=== PATIENT | male | born 1980 | race Hispanic/Latino ===

== ENCOUNTER 2017-03-19 04:00 | Inpatient (IN) | payer MEDICAID ==
--- NOTE | 2017-03-19 21:18 | PCM.SURG1 ---
Surgeon's Initial Post Op Note - Surgeon's Notes Surgeon: Dr. Hutchinson Accounting Analyst: Dr. Dunn Type of Anesthesia: General Endo, Local Pre-Operative Diagnosis: acute appendicitis Operative Findings: inflammed appendix Post-Operative Diagnosis: same Operation Performed: laparoscopic appendectomy Specimen/Specimens Removed: appendix Estimated Blood Loss: EBL {In ML}: 10 Blood Products Given: N/A Drains Used: No Drains Post-Op Condition: Good Date of Surgery/Procedure: 03/19/17 Time of Surgery/Procedure: 13:00
[2017-03-19] MEDS ORDERED: Oxycodone/Acetaminophen 5/325 mg Tab PO PRN (21:50)
[2017-03-19] MEDS ORDERED: Morphine 4 MG/ML VIAL IVP PRN (21:51)
[2017-03-19] MEDS: Piperacillin/Tazobact 3.375 GM in Sodium Chloride 100 ML IVPB SCH (22:00)
[2017-03-19] MEDS: Oxycodone/Acetaminophen 5/325 mg Tab PO PRN (22:19)
[2017-03-19] MEDS: Lactated Ringer's 1,000 ML IV SCH (22:23)
[2017-03-20 00:01] LABS: BASO # 0.1 K/uL (0.0-0.2); BASO % 0.8 % (0.0-2.0); EOS # 0.2 K/uL (0.0-0.7); EOS % 1.4 % (0.0-4.0); HEMATOCRIT 42.7 % (35.0-51.0); LYMPH # 2.6 K/uL (1.0-4.3); LYMPH % 17.1 % (20.0-40.0); MEAN CELL VOLUME 84.9 fL (80.0-94.0); MEAN PLATELET VOLUME 9.1 fL (7.2-11.7); MONO # 0.7 K/uL (0.0-0.8); MONO % 4.4 % (0.0-10.0); RED CELL DISTRIBUTION WIDTH 13.3 % (11.5-14.5); WHITE BLOOD COUNT 15.1 K/uL (4.8-10.8)
[2017-03-20 00:14] LABS: ALB/GLOB RATIO 1.5 (1.0-2.1); ALCOHOL SERUM < 20 mg/dl (0-10); ALKALINE PHOSPHATASE 80 U/L (38-126); ALT/SGPT 27 U/L (21-72); AMYLASE 65 U/L (30-110); AST/SGOT 24 U/L (17-59); BILIRUBIN,TOTAL 0.6 mg/dL (0.2-1.3); BLOOD UREA NITROGEN 12 mg/dL (9-20); CALCIUM 9.1 mg/dl (8.6-10.4); CARBON DIOXIDE 25 mmol/L (22-30); CHLORIDE 100 mmol/L (98-107); GFR AFRICAN-AMERICAN > 60; GLUCOSE,RANDOM 130 mg/dL (75-110); POTASSIUM 3.9 mmol/L (3.6-5.2); SODIUM 138 mmol/L (132-148); TOTAL PROTEIN 8.5 g/dL (6.3-8.3)
[2017-03-20] MEDS: Oxycodone/Acetaminophen 5/325 mg Tab PO PRN ×2 (04:21→08:48)
[2017-03-20] MEDS: Piperacillin/Tazobact 3.375 GM in Sodium Chloride 100 ML IVPB SCH ×4 (04:22→22:16)
[2017-03-20 05:55] LABS: URINE COLOR YELLOW (YELLOW); URINE GLUCOSE (UA) Normal (Normal)
[2017-03-20 05:56] LABS: URINE BILIRUBIN NEGATIVE (NEGATIVE); URINE BLOOD NEGATIVE (NEGATIVE); URINE KETONE NEGATIVE (NEGATIVE); URINE LEUKOCYTE ESTERASE Negative Leu/uL (Negative); URINE PROTEIN 1+ mg/dL (NEGATIVE); URINE UROBILINOGEN Normal mg/dL (0.2-1.0)
[2017-03-20 05:57] LABS: RBC URINE 4 /hpf (0-3); URINE BACTERIA RARE (<OCC); WBC URINE 1 /hpf (0-5)
[2017-03-20 06:48] LABS: CHLORIDE 100 mmol/L (98-107); SODIUM 135 mmol/L (132-148)
[2017-03-20 06:50] LABS: GFR AFRICAN-AMERICAN > 60
[2017-03-20 06:51] LABS: BLOOD UREA NITROGEN 17 mg/dL (9-20); CALCIUM 8.1 mg/dl (8.6-10.4); CARBON DIOXIDE 27 mmol/L (22-30); GLUCOSE,RANDOM 123 mg/dL (75-110)
[2017-03-20 06:57] LABS: HEMATOCRIT 36.5 % (35.0-51.0); LYMPH # 1.7 K/uL (1.0-4.3); LYMPH % 8.9 % (20.0-40.0); MEAN CELL VOLUME 85.6 fL (80.0-94.0); MEAN CORPUSCULAR HEMOGLOBIN 27.9 pg (27.0-31.0); MEAN CORPUSCULAR HGB CONC 32.6 g/dL (33.0-37.0); MEAN PLATELET VOLUME 9.6 fL (7.2-11.7); MONO # 0.8 K/uL (0.0-0.8); MONO % 4.4 % (0.0-10.0); PLATELET COUNT 303 K/uL (130-400); RED CELL DISTRIBUTION WIDTH 13.3 % (11.5-14.5); WHITE BLOOD COUNT 18.7 K/uL (4.8-10.8)
[2017-03-20] MEDS: Lactated Ringer's 1,000 ML IV SCH (08:49)
--- NOTE | 2017-03-20 09:14 | CT ---
CT abdomen and pelvis with IV contrast Indication: Abdominal pain, mid upper abdomen Technique: Contiguous axial images of the abdomen and pelvis. Coronal and Sagittal reformats generated and reviewed. Contrast: 100 mL Visipaque 320 IV. Oral contrast was not administered. This CT exam was performed using 1 or more of the falling dose reduction techniques: Automated exposure control, adjustment of the MAA and/or kV according to patient size, and/or use of iterative reconstruction technique. Radiation dose: Total exam DLP = 412.14 MGy-cm. Comparison: None available Findings: Minimal basilar atelectasis. There is no visible pleural effusion or pneumothorax. Nodular hyperplasia, left adrenal gland. The liver, spleen, kidneys, pancreas, right adrenal gland, and gallbladder appear unremarkable. The stomach is nondistended. The bowel loops appear within normal limits of caliber without evidence of intestinal obstruction. There is no definite free air. Dilated appendix measuring approximately 1 cm with evidence of mild periappendiceal fat stranding. Appendicolith noted. Findings consistent with acute appendicitis. Correlate clinically. Under distended urinary bladder. Urachal remnant. No acute osseous abnormality is detected. Impression: Dilated appendix measuring approximately 1 cm with evidence of mild periappendiceal fat stranding. Appendicolith noted. Findings consistent with acute appendicitis. Correlate clinically. 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 Nodular hyperplasia, left adrenal gland. Preliminary impression was provided by virtual radiologic.
[2017-03-20 09:53] LABS: NEUTROPHIL 87 % (50-75); TOTAL CELLS COUNTED 100
[2017-03-20 09:54] LABS: LARGE PLATELETS PRESENT
--- NOTE | 2017-03-20 09:57 | CP.PCM.PN ---
<Arabella Gibbons DO - Last Filed: 03/20/17 11:36> Subjective - Date & Time of Evaluation Date of Evaluation: 03/20/17 Time of Evaluation: 09:53 - Subjective Subjective: PGY1 Progress note for Dr. Hutchinson: Patient seen and examined. Patient complaining of right lower quadrant pain, especially with movement in bed. Patient tolerating diet and denies nausea or vomiting. Patient denies fevers and chills. Patient denies flatus or BM. Patient denies dysuria. Objective - Vital Signs/Intake and Output Vital Signs (last 24 hours): Temp Pulse Resp BP Pulse Ox 98.3 F 72 20 99/55 L 96 03/20/17 08:25 03/20/17 08:25 03/20/17 08:25 03/20/17 08:25 03/20/17 08:25 Intake and Output: 03/20/17 03/20/17 06:59 18:59 Intake Total 1125 Balance 1125 - Medications Medications: Current Medications Docusate Sodium (Colace) 100 mg PO BID [facility] Lactated Ringer's (Lactated Ringer's) 1,000 mls @ 125 mls/hr IV .Q8H [facility] Last Admin: 03/20/17 08:49 Dose: 125 mls/hr Piperacillin Sod/Tazobactam (Sod 3.375 gm/ Sodium Chloride) 100 mls @ 200 mls/ hr IVPB Q6H [facility] Last Admin: 03/20/17 09:13 Dose: 200 mls/hr Ondansetron HCl (Zofran Inj) 4 mg IVP Q4 PRN PRN Reason: Nausea/Vomiting Oxycodone/Acetaminophen (Percocet 5/325 Mg Tab) 2 tab PO Q4H PRN PRN Reason: Pain, severe (8-10) Stop: 03/22/17 21:51 Last Admin: 03/20/17 08:48 Dose: 2 tab Oxycodone/Acetaminophen (Percocet 5/325 Mg Tab) 1 tab PO Q4H PRN PRN Reason: Pain, moderate (4-7) Stop: 03/22/17 21:51 Pantoprazole Sodium (Protonix Inj) 40 mg IVP DAILY [facility] Last Admin: 03/20/17 09:12 Dose: 40 mg - Labs Labs: 03/20/17 06:16 03/20/17 06:16 - Constitutional Appears: No Acute Distress - Head Exam Head Exam: ATRAUMATIC, NORMOCEPHALIC - Eye Exam Eye Exam: EOMI - Respiratory Exam Respiratory Exam: NORMAL BREATHING PATTERN. absent: Respiratory Distress - GI/Abdominal Exam GI & Abdominal Exam: Distended, Tenderness (RLQ). absent: Guarding Additional comments: dressings on incisions clean, dry, intact - Neurological Exam Neurological Exam: Alert, Awake - Psychiatric Exam Psychiatric exam: Normal Affect - Skin Skin Exam: Warm Assessment and Plan - Assessment and Plan (Free Text) Assessment: 37 male s/p laparoscopic appendectomy, POD #1 - continue zosyn 3.375g q6 - holding percocet due to distention for possible ileus, starting toradol - adding colace - encourage ambulation, incentive spirometer - will continue to monitor - further recs per Dr. Hutchinson <Helio Hutchinson - Last Filed: 03/22/17 22:44> Objective - Vital Signs/Intake and Output Vital Signs (last 24 hours): Temp Pulse Resp BP Pulse Ox 98.3 F 77 20 115/74 96 03/22/17 16:45 03/22/17 16:45 03/22/17 16:45 03/22/17 16:45 03/22/17 16:45 - Medications Medications: Current Medications Albuterol/Ipratropium (Duoneb 3 Mg/0.5 Mg (3 Ml) Ud) 3 ml INH RQ6 [facility] Last Admin: 03/22/17 19:54 Dose: 3 ml Albuterol/Ipratropium (Duoneb 3 Mg/0.5 Mg (3 Ml) Ud) 3 ml INH RQ2 PRN PRN Reason: Wheezing Docusate Sodium (Colace) 100 mg PO BID [facility] Last Admin: 03/22/17 18:00 Dose: 100 mg Heparin Sodium (Porcine) (Heparin) 5,000 units SC Q8 [facility] Last Admin: 03/22/17 21:50 Dose: 5,000 units Piperacillin Sod/Tazobactam (Sod 3.375 gm/ Sodium Chloride) 100 mls @ 200 mls/ hr IVPB Q6H [facility] Last Admin: 03/22/17 21:49 Dose: 200 mls/hr Lactated Ringer's (Lactated Ringer's) 1,000 mls @ 50 mls/hr IV .Q20H [facility] Last Admin: 03/21/17 10:06 Dose: 50 mls/hr Metoclopramide HCl (Reglan) 5 mg IVP Q8H [facility] Stop: 03/23/17 03:53 Last Admin: 03/22/17 20:41 Dose: 5 mg Ondansetron HCl (Zofran Inj) 4 mg IVP Q4 PRN PRN Reason: Nausea/Vomiting Pantoprazole Sodium (Protonix Inj) 40 mg IVP DAILY [facility] Last Admin: 03/22/17 10:23 Dose: 40 mg - Labs Labs: 03/22/17 11:25 03/21/17 06:13 Attending/Attestation - Attestation I have personally seen and examined this patient.: Yes I have fully participated in the care of the patient.: Yes I have reviewed all pertinent clinical information, including history, physical exam and plan: Yes Notes (Text): 03/22/17 22:44 Pt was seen and examined at bedside on 03/20/17 Agree with above note and assessment
[2017-03-21] MEDS ORDERED: Albuterol-Ipratrop 3 mg / 0.5 (3 ml) UD INH STA (00:17)
[2017-03-21] MEDS: Piperacillin/Tazobact 3.375 GM in Sodium Chloride 100 ML IVPB SCH ×4 (04:23→21:13)
[2017-03-21 06:25] LABS: BASO % 0.3 % (0.0-2.0); EOS # 0.1 K/uL (0.0-0.7); EOS % 0.4 % (0.0-4.0); LYMPH # 3.1 K/uL (1.0-4.3); LYMPH % 18.1 % (20.0-40.0); MEAN CELL VOLUME 86.7 fL (80.0-94.0); MEAN CORPUSCULAR HEMOGLOBIN 28.3 pg (27.0-31.0); MEAN CORPUSCULAR HGB CONC 32.7 g/dL (33.0-37.0); MEAN PLATELET VOLUME 9.4 fL (7.2-11.7); MONO # 0.8 K/uL (0.0-0.8); MONO % 4.5 % (0.0-10.0); RED CELL DISTRIBUTION WIDTH 13.3 % (11.5-14.5); WHITE BLOOD COUNT 17.4 K/uL (4.8-10.8)
[2017-03-21 06:31] LABS: CHLORIDE 102 mmol/L (98-107); POTASSIUM 3.6 mmol/L (3.6-5.2); SODIUM 139 mmol/L (132-148)
[2017-03-21 06:33] LABS: BILIRUBIN,TOTAL 0.8 mg/dL (0.2-1.3); GFR AFRICAN-AMERICAN > 60
[2017-03-21 06:34] LABS: ALKALINE PHOSPHATASE 48 U/L (38-126); ALT/SGPT 21 U/L (21-72); AST/SGOT 30 U/L (17-59); BLOOD UREA NITROGEN 17 mg/dL (9-20); CARBON DIOXIDE 29 mmol/L (22-30); GLUCOSE,RANDOM 87 mg/dL (75-110)
[2017-03-21 06:35] LABS: CALCIUM 7.6 mg/dl (8.6-10.4)
[2017-03-21] MEDS ORDERED: Albuterol-Ipratrop 3 mg / 0.5 (3 ml) UD INH ONE (07:52)
[2017-03-21] MEDS ORDERED: Albuterol-Ipratrop 3 mg / 0.5 (3 ml) UD INH PRN (08:38)
[2017-03-21] MEDS: Lactated Ringer's 1,000 ML IV SCH (10:06)
--- NOTE | 2017-03-21 11:27 | CP.PCM.PN ---
Subjective - Date & Time of Evaluation Date of Evaluation: 03/21/17 Time of Evaluation: 08:15 - Subjective Subjective: SURGERY PROGRESS NOTE DR. BROOKS 37M seen and examined at bedside. Patient states pain is controlled. denies nausea, vomiting, he is tolerating regular diet currently. Had an episode of asthma attack this morning now controlled. Nurse and patient state abdomen is more distended than usual. Objective - Vital Signs/Intake and Output Vital Signs (last 24 hours): Temp Pulse Resp BP Pulse Ox 98.7 F 105 H 20 115/70 96 03/21/17 07:02 03/21/17 07:02 03/21/17 07:02 03/21/17 07:02 03/21/17 07:02 Intake and Output: 03/21/17 03/21/17 06:59 18:59 Intake Total 1070 Balance 1070 - Medications Medications: Current Medications Albuterol/Ipratropium (Duoneb 3 Mg/0.5 Mg (3 Ml) Ud) 3 ml INH RQ6 [facility] Albuterol/Ipratropium (Duoneb 3 Mg/0.5 Mg (3 Ml) Ud) 3 ml INH RQ2 PRN PRN Reason: Wheezing Docusate Sodium (Colace) 100 mg PO BID [facility] Last Admin: 03/21/17 10:04 Dose: 100 mg Heparin Sodium (Porcine) (Heparin) 5,000 units SC Q8 [facility] Last Admin: 03/21/17 06:28 Dose: 5,000 units Piperacillin Sod/Tazobactam (Sod 3.375 gm/ Sodium Chloride) 100 mls @ 200 mls/ hr IVPB Q6H [facility] Last Admin: 03/21/17 10:04 Dose: 200 mls/hr Lactated Ringer's (Lactated Ringer's) 1,000 mls @ 50 mls/hr IV .Q20H [facility] Last Admin: 03/21/17 10:06 Dose: 50 mls/hr Ketorolac Tromethamine (Toradol) 30 mg IVP Q6 PRN PRN Reason: Pain, moderate (4-7) Last Admin: 03/20/17 17:01 Dose: 30 mg Ondansetron HCl (Zofran Inj) 4 mg IVP Q4 PRN PRN Reason: Nausea/Vomiting Oxycodone/Acetaminophen (Percocet 5/325 Mg Tab) 2 tab PO Q4H PRN PRN Reason: Pain, severe (8-10) Stop: 03/22/17 21:51 Last Admin: 03/20/17 08:48 Dose: 2 tab Oxycodone/Acetaminophen (Percocet 5/325 Mg Tab) 1 tab PO Q4H PRN PRN Reason: Pain, moderate (4-7) Stop: 03/22/17 21:51 Pantoprazole Sodium (Protonix Inj) 40 mg IVP DAILY [facility] Last Admin: 03/21/17 10:04 Dose: 40 mg - Labs Labs: 03/21/17 06:13 03/21/17 06:13 - Constitutional Appears: Non-toxic, No Acute Distress - Head Exam Head Exam: ATRAUMATIC - Respiratory Exam Respiratory Exam: Clear to Ausculation Bilateral, NORMAL BREATHING PATTERN - Cardiovascular Exam Cardiovascular Exam: REGULAR RHYTHM, +S1, +S2 - GI/Abdominal Exam GI & Abdominal Exam: Distended, Firm, Soft, Tenderness. absent: Guarding, Rigid , Rebound Assessment and Plan - Assessment and Plan (Free Text) Assessment: 37M s/p lap appendectomy POD2 - switch to liquid diet - serial abdominal exams - stated on nebulizer treatments - no opioids, monitor CBC Further recs discuss with Dr. Evangelina Stevens, PGY
[2017-03-21] MEDS: Albuterol-Ipratrop 3 mg / 0.5 (3 ml) UD INH SCH ×2 (13:24→20:05)
[2017-03-22] MEDS: Albuterol-Ipratrop 3 mg / 0.5 (3 ml) UD INH SCH ×4 (01:22→19:54)
[2017-03-22] MEDS: Piperacillin/Tazobact 3.375 GM in Sodium Chloride 100 ML IVPB SCH ×4 (04:19→21:49)
[2017-03-22 11:34] LABS: HEMATOCRIT 38.3 % (35.0-51.0); MEAN CELL VOLUME 87.4 fL (80.0-94.0); MEAN PLATELET VOLUME 9.4 fL (7.2-11.7); RED CELL DISTRIBUTION WIDTH 13.1 % (11.5-14.5); WHITE BLOOD COUNT 10.7 K/uL (4.8-10.8)
--- NOTE | 2017-03-22 11:51 | CP.PCM.PN ---
Subjective - Date & Time of Evaluation Date of Evaluation: 03/22/17 Time of Evaluation: 08:00 - Subjective Subjective: Surgery: Dr. Hutchinson Pt seen and examined. No acute overnight events. Pt states he feels ok and pain is well controlled. Still complaining of feeling bloated. Denies N/V, F/C, flatus or BM. Objective - Vital Signs/Intake and Output Vital Signs (last 24 hours): Temp Pulse Resp BP Pulse Ox 98.2 F 66 18 116/72 98 03/22/17 07:05 03/22/17 07:05 03/22/17 07:05 03/22/17 07:05 03/22/17 07:05 Intake and Output: 03/22/17 03/22/17 06:59 18:59 Intake Total 1270 Output Total 350 Balance 920 - Medications Medications: Current Medications Albuterol/Ipratropium (Duoneb 3 Mg/0.5 Mg (3 Ml) Ud) 3 ml INH RQ6 [facility] Last Admin: 03/22/17 07:35 Dose: Not Given Albuterol/Ipratropium (Duoneb 3 Mg/0.5 Mg (3 Ml) Ud) 3 ml INH RQ2 PRN PRN Reason: Wheezing Docusate Sodium (Colace) 100 mg PO BID [facility] Last Admin: 03/22/17 10:23 Dose: 100 mg Heparin Sodium (Porcine) (Heparin) 5,000 units SC Q8 [facility] Last Admin: 03/22/17 06:26 Dose: 5,000 units Piperacillin Sod/Tazobactam (Sod 3.375 gm/ Sodium Chloride) 100 mls @ 200 mls/ hr IVPB Q6H [facility] Last Admin: 03/22/17 10:23 Dose: 200 mls/hr Lactated Ringer's (Lactated Ringer's) 1,000 mls @ 50 mls/hr IV .Q20H [facility] Last Admin: 03/21/17 10:06 Dose: 50 mls/hr Ondansetron HCl (Zofran Inj) 4 mg IVP Q4 PRN PRN Reason: Nausea/Vomiting Oxycodone/Acetaminophen (Percocet 5/325 Mg Tab) 2 tab PO Q4H PRN PRN Reason: Pain, severe (8-10) Stop: 03/22/17 21:51 Last Admin: 03/20/17 08:48 Dose: 2 tab Oxycodone/Acetaminophen (Percocet 5/325 Mg Tab) 1 tab PO Q4H PRN PRN Reason: Pain, moderate (4-7) Stop: 03/22/17 21:51 Pantoprazole Sodium (Protonix Inj) 40 mg IVP DAILY [facility] Last Admin: 03/22/17 10:23 Dose: 40 mg - Labs Labs: 03/22/17 11:25 03/21/17 06:13 - Constitutional Appears: Well, No Acute Distress - Head Exam Head Exam: ATRAUMATIC, NORMOCEPHALIC - Eye Exam Eye Exam: Normal appearance - ENT Exam ENT Exam: Mucous Membranes Moist - Cardiovascular Exam Cardiovascular Exam: RRR - GI/Abdominal Exam GI & Abdominal Exam: Distended, Soft. absent: Guarding, Tenderness - Extremities Exam Extremities Exam: absent: Tenderness - Neurological Exam Neurological Exam: Alert, Awake, Oriented x3 - Skin Skin Exam: Dry, Intact, Warm Assessment and Plan - Assessment and Plan (Free Text) Assessment: 37M s/p lap appy; POD#2 Plan: - Advance diet as tolerated - Encourage ambulation - Dulcolax suppository to help with BM - d/w Dr. Maravilla (covering for Dr. Hutchinson) Mady Sam, PGY-2 Surgery
--- NOTE | 2017-03-22 22:25 | OP ---
PROCEDURE DATE: 03/19/2017 PREOPERATIVE DIAGNOSES: 1. Acute appendicitis. 2. Leukocytosis. POSTOPERATIVE DIAGNOSES: 1. Acute appendicitis. 2. Pelvic abscess and leukocytosis. PROCEDURES DONE: 1. Laparoscopic appendectomy. 2. Laparoscopic drainage of pelvic and periappendicular abscess. SURGEON: Helio Hutchinson MD. EVENT SPECIALIST: Gloria Dunn, PGY-1 resident. ANESTHESIA: General endotracheal tube anesthesia. ESTIMATED BLOOD LOSS: Around 10 mL. DRAINS: None. PATHOLOGY: The appendix was sent for pathology. COMPLICATIONS: None. INTRAOPERATIVE FINDINGS: The patient had changes of acute dissipated appendicitis with periappendicu lar and pelvic abscess. INTRAOPERATIVE STEPS: This is a 37-year-old male, who was diagnosed with acute appendicitis and leuk ocytosis, and the patient was consented for laparoscopic appendectomy, possible open, brought to the OR, placed supine on the operating table. After induction of the anesthesia, abdomen was prepped and draped in the usual sterile fashion. The supraumbilical, transverse 1.5 cm incision was made. Afte r incising skin and subcutaneous tissue, the fascia was incised in the line of incision. Neha port was placed, pneumo was created, and the 5 mm port was placed in the suprapubic region. A 12 mm port was placed in the left lower quadrant. The grasper and dissector were introduced and the appendix w as identified. Appendix appeared to be extremely thickened and edematous and there was pus surroundi ng the periappendicular area, and mesoappendix was resected. The base of the appendix was resected w ith a JOANNA, and the periappendicular and the pelvic abscesses were drained. After proper suction irri gation and after proper hemostasis, the appendix was sent to the table for the pathology, and all the instruments were taken out and of the ports were taken out under vision. Pneumo was deflated. The umbilical port site was closed in 2 layers, the fascia with 0 Vicryl interrupted suture, skin with a 4-0 Monocryl. Dry sterile dressing was applied. The patient tolerated the procedure well. Count of instruments and gauze was correct. There was no apparent complication. Helio Hutchinson MD cc: [id number] TT: 03/22/2017 22:24:33 tn
[2017-03-23] MEDS: Albuterol-Ipratrop 3 mg / 0.5 (3 ml) UD INH SCH ×3 (01:30→13:53)
[2017-03-23] MEDS: Piperacillin/Tazobact 3.375 GM in Sodium Chloride 100 ML IVPB SCH ×2 (04:04→10:08)
[2017-03-23] MEDS: Lactated Ringer's 1,000 ML IV SCH (05:49)
[2017-03-23 07:14] LABS: HEMATOCRIT 36.3 % (35.0-51.0); MEAN CORPUSCULAR HGB CONC 33.7 g/dL (33.0-37.0); MEAN PLATELET VOLUME 9.1 fL (7.2-11.7); RED CELL DISTRIBUTION WIDTH 12.9 % (11.5-14.5); WHITE BLOOD COUNT 9.3 K/uL (4.8-10.8)
--- NOTE | 2017-03-23 15:30 | CP.PCM.PN ---
<Ashtyn Dunn-Ephraim - Last Filed: 03/23/17 15:27> Subjective - Date & Time of Evaluation Date of Evaluation: 03/23/17 Time of Evaluation: 15:27 - Subjective Subjective: Surgery: Dr. Hutchinson Patient states he is feeling well today. He reports bowel movement yesterday, which was normal. Patient is tolerating diet. Pain controlled. He reports ambulating without difficulty. Objective - Vital Signs/Intake and Output Vital Signs (last 24 hours): Temp Pulse Resp BP Pulse Ox 98.1 F 62 18 114/73 94 L 03/23/17 07:05 03/23/17 07:05 03/23/17 07:05 03/23/17 07:05 03/23/17 07:05 Intake and Output: 03/23/17 03/23/17 06:59 18:59 Intake Total 1160 Output Total 850 Balance 310 - Medications Medications: Current Medications Albuterol/Ipratropium (Duoneb 3 Mg/0.5 Mg (3 Ml) Ud) 3 ml INH RQ6 [facility] Last Admin: 03/23/17 13:53 Dose: Not Given Albuterol/Ipratropium (Duoneb 3 Mg/0.5 Mg (3 Ml) Ud) 3 ml INH RQ2 PRN PRN Reason: Wheezing Docusate Sodium (Colace) 100 mg PO BID [facility] Last Admin: 03/23/17 10:08 Dose: 100 mg Piperacillin Sod/Tazobactam (Sod 3.375 gm/ Sodium Chloride) 100 mls @ 200 mls/ hr IVPB Q6H [facility] Last Admin: 03/23/17 10:08 Dose: 200 mls/hr Ondansetron HCl (Zofran Inj) 4 mg IVP Q4 PRN PRN Reason: Nausea/Vomiting Pantoprazole Sodium (Protonix Inj) 40 mg IVP DAILY [facility] Last Admin: 03/23/17 10:08 Dose: 40 mg - Labs Labs: 03/23/17 06:56 03/21/17 06:13 - Constitutional Appears: Non-toxic, No Acute Distress - Head Exam Head Exam: ATRAUMATIC, NORMOCEPHALIC - Eye Exam Eye Exam: EOMI, Normal appearance - ENT Exam ENT Exam: Mucous Membranes Moist - Respiratory Exam Respiratory Exam: NORMAL BREATHING PATTERN. absent: Respiratory Distress - Cardiovascular Exam Cardiovascular Exam: REGULAR RHYTHM. absent: Tachycardia - GI/Abdominal Exam GI & Abdominal Exam: Distended, Soft. absent: Guarding, Tenderness, Rebound Additional comments: dressing CDI - Neurological Exam Neurological Exam: Alert, Awake - Psychiatric Exam Psychiatric exam: Normal Affect, Normal Mood - Skin Skin Exam: Dry, Normal Color, Warm Assessment and Plan - Assessment and Plan (Free Text) Assessment: 37 y/o male s/p laparoscopic appendectomy POD4 Plan: -cont reg diet -once distention improves can d/c -encourage ambulation -encourage IS use -further recs per Dr. Hutchinson [facility] PGY1 <Helio Hutchinson - Last Filed: 03/23/17 21:23> Objective - Vital Signs/Intake and Output Vital Signs (last 24 hours): Temp Pulse Resp BP Pulse Ox 97.8 F 88 20 152/80 H 97 03/23/17 15:00 03/23/17 15:00 03/23/17 15:00 03/23/17 15:00 03/23/17 15:00 - Labs Labs: 03/23/17 06:56 03/21/17 06:13 Attending/Attestation - Attestation I have personally seen and examined this patient.: Yes I have fully participated in the care of the patient.: Yes I have reviewed all pertinent clinical information, including history, physical exam and plan: Yes Notes (Text): 03/23/17 21:22 Pt was seen and examined at bedside on 03/23/17 Agree with above note and assessment Pt can be DC home F.U as out pt Plan d.w pt in detail Risk and benefit explained in detail.
--- NOTE | 2017-03-23 16:02 | CP.PCM.DIS ---
Provider - Provider Date of Admission: 03/19/17 09:20 Attending physician: Helio Hutchinson MD Time Spent in preparation of Discharge (in minutes): 20 Diagnosis - Discharge Diagnosis (1) Acute appendicitis Status: Acute Hospital Course - Lab Results Lab Results: Most Recent Lab Values WBC 9.3 K/uL (4.8-10.8) 03/23/17 06:56 RBC 4.22 Mil/uL (4.40-5.90) L 03/23/17 06:56 Hgb 12.3 g/dL (12.0-18.0) 03/23/17 06:56 Hct 36.3 % (35.0-51.0) 03/23/17 06:56 MCV 86.0 fL (80.0-94.0) 03/23/17 06:56 MCH 29.0 pg (27.0-31.0) 03/23/17 06:56 MCHC 33.7 g/dL (33.0-37.0) 03/23/17 06:56 RDW 12.9 % (11.5-14.5) 03/23/17 06:56 Plt Count 294 K/uL (130-400) 03/23/17 06:56 MPV 9.1 fL (7.2-11.7) 03/23/17 06:56 Neut % (Auto) 76.7 % (50.0-75.0) H 03/21/17 06:13 Lymph % (Auto) 18.1 % (20.0-40.0) L 03/21/17 06:13 [place] % (Auto) 4.5 % (0.0-10.0) 03/21/17 06:13 Eos % (Auto) 0.4 % (0.0-4.0) 03/21/17 06:13 Baso % (Auto) 0.3 % (0.0-2.0) 03/21/17 06:13 Neut # 13.3 K/uL (1.8-7.0) H 03/21/17 06:13 Lymph # 3.1 K/uL (1.0-4.3) 03/21/17 06:13 [place] # 0.8 K/uL (0.0-0.8) 03/21/17 06:13 Eos # 0.1 K/uL (0.0-0.7) 03/21/17 06:13 Baso # 0.0 K/uL (0.0-0.2) 03/21/17 06:13 Neutrophils % (Manual) 87 % (50-75) H 03/20/17 06:16 Band Neutrophils % 1 % (0-2) 03/20/17 06:16 Lymphocytes % (Manual) 8 % (20-40) L 03/20/17 06:16 Monocytes % (Manual) 4 % (0-10) 03/20/17 06:16 Platelet Estimate Normal (NORMAL) 03/20/17 06:16 Large Platelets Present 03/20/17 06:16 Hypochromasia (manual) Slight 03/20/17 06:16 Sodium 139 mmol/L (132-148) 03/21/17 06:13 Potassium 3.6 mmol/L (3.6-5.2) 03/21/17 06:13 Chloride 102 mmol/L (98-107) 03/21/17 06:13 Carbon Dioxide 29 mmol/L (22-30) 03/21/17 06:13 Anion Gap 11 (10-20) 03/21/17 06:13 BUN 17 mg/dL (9-20) 03/21/17 06:13 Creatinine 1.2 MG/DL (0.8-1.5) 03/21/17 06:13 Est GFR ( Amer) > 60 03/21/17 06:13 Est GFR (Non-Af Amer) > 60 03/21/17 06:13 Random Glucose 87 mg/dL (75-110) 03/21/17 06:13 Calcium 7.6 mg/dl (8.6-10.4) L 03/21/17 06:13 Total Bilirubin 0.8 mg/dL (0.2-1.3) 03/21/17 06:13 AST 30 U/L (17-59) 03/21/17 06:13 ALT 21 U/L (21-72) D 03/21/17 06:13 Alkaline Phosphatase 48 U/L (38-126) 03/21/17 06:13 Troponin I < 0.0120 ng/mL (0.00-0.120) 03/19/17 04:45 Total Protein 6.0 g/dL (6.3-8.3) L 03/21/17 06:13 Albumin 2.9 g/dL (3.5-5.0) L D 03/21/17 06:13 Globulin 3.0 gm/dL (2.2-3.9) 03/21/17 06:13 Albumin/Globulin Ratio 1.0 (1.0-2.1) 03/21/17 06:13 Amylase 65 U/L (30-110) 03/19/17 04:45 Lipase 59 U/L (23-300) 03/19/17 04:45 Urine Color Yellow (YELLOW) 03/19/17 20:06 Urine Clarity Clear (Clear) 03/19/17 20:06 Urine pH 6.0 (5.0-8.0) 03/19/17 20:06 Ur Specific [place] 1.060 (1.003-1.030) H 03/19/17 20:06 Urine Protein 1+ mg/dL (NEGATIVE) H 03/19/17 20:06 Urine Glucose (UA) Normal mg/dL (Normal) 03/19/17 20:06 Urine Ketones Negative mg/dL (NEGATIVE) 03/19/17 20:06 Urine Blood Negative (NEGATIVE) 03/19/17 20:06 Urine Nitrate Negative (NEGATIVE) 03/19/17 20:06 Urine Bilirubin Negative (NEGATIVE) 03/19/17 20:06 Urine Urobilinogen Normal mg/dL (0.2-1.0) 03/19/17 20:06 Ur Leukocyte Esterase Negative Uzma/uL (Negative) 03/19/17 20:06 Urine WBC (Auto) 1 /hpf (0-5) 03/19/17 20:06 Urine RBC (Auto) 4 /hpf (0-3) H 03/19/17 20:06 Ur Squamous Epith Cells < 1 /hpf (0-5) 03/19/17 20:06 Urine Bacteria Rare (<OCC) 03/19/17 20:06 Urine Opiates Screen Negative (NEGATIVE) 03/19/17 20:06 Urine Methadone Screen Negative (NEGATIVE) 03/19/17 20:06 Ur Barbiturates Screen Negative (NEGATIVE) 03/19/17 20:06 Ur Phencyclidine Scrn Negative (NEGATIVE) 03/19/17 20:06 Ur Amphetamines Screen Negative (NEGATIVE) 03/19/17 20:06 U Benzodiazepines Scrn Negative (NEGATIVE) 03/19/17 20:06 U Oth Cocaine Metabols Negative (NEGATIVE) 03/19/17 20:06 U Cannabinoids Screen Negative (NEGATIVE) 03/19/17 20:06 Alcohol, Quantitative < 20 mg/dl (0-10) H 03/19/17 04:45 - Hospital Course Hospital Course: Patient was admitted on 03/19 with the diagnosis of acute appendicitis. Patient underwent a laparoscopic appendectomy, uncomplicated. Patient remained in hospital until POD4 2/2 ileus. Patient was found suitable for d/c on POD4 w/ rx for cipro/flagy and motrin for pain. D/c instructions given. Discharge Exam - Head Exam Head Exam: ATRAUMATIC, NORMOCEPHALIC - ENT Exam ENT Exam: Mucous Membranes Moist - Respiratory Exam Respiratory Exam: NORMAL BREATHING PATTERN, UNREMARKABLE - Cardiovascular Exam Cardiovascular Exam: REGULAR RHYTHM. absent: Tachycardia - GI/Abdominal Exam GI & Abdominal Exam: Distended, Soft. absent: Tenderness - Extremities Exam Extremities exam: normal inspection - Neurological Exam Neurological exam: Oriented x3 - Psychiatric Exam Psychiatric exam: Normal Affect, Normal Mood - Skin Skin Exam: Dry, Normal Color, Warm Discharge Plan - Discharge Medications Prescriptions: Ciprofloxacin HCl [Cipro] 500 mg PO BID #20 tablet Metronidazole [Flagyl] 500 mg PO BID #20 tablet - Follow Up Plan Condition: GOOD Disposition: HOME/ ROUTINE Instructions: Appendicitis (DC), Laparoscopic Appendectomy (DC) Referrals: Helio Hutchinson MD [Staff Provider] - Clinical Quality Measures - CQM - Stroke Antithrombotic Prescribed: Yes
[2017-03-23 16:09] VITALS: BP 152/80; PULSE 88; RESP 20; TEMP 97.8; O2SAT 97
== END 2017-03-23 16:25 | disposition home or self-care (01) | DRG 883 ==
LOC: C.ER 04:00 → C.6T 09:20
PROVIDERS: ADMIT Surgery Surgical Critical Care; ATTEND Surgery Surgical Critical Care
PROC: 0DTJ4ZZ Resection of Appendix, Percutaneous Endoscopic Approach (ICD-10-PCS; principal; 2017-03-19 12:00)
DX: K35.3 Acute appendicitis with localized peritonitis (principal); K56.7 Ileus, unspecified; J45.909 Unspecified asthma, uncomplicated

== ENCOUNTER 2017-03-29 20:55 | Emergency (ER) | payer MEDICAID ==
[2017-03-29 21:12] VITALS: RESP 16; O2SAT 98
[2017-03-29] MEDS ORDERED: Oxycodone/Acetaminophen 5/325 mg Tab PO STA (21:31)
[2017-03-29] MEDS ORDERED: Oxycodone/Acetaminophen 5/325 mg Tab ONE (21:40)
--- NOTE | 2017-03-29 22:43 | C.PDOC ---
History Of Present Illness <ValentinaTrina - Last Filed: 03/29/17 23:38> <Serina Robledo - Last Filed: 03/30/17 00:28> Patient c/o pain in the left ear and periauricular area, decreased hearing, tinnitus and pop sounds in the right ear. Also patient is requesting a post op wound check. Patient had appendectomy 1 week ago. (Trina Montgomery) History Per: Patient Onset/Duration Of Symptoms: Days (3) Quality (Ear): Pain W/Touch. denies: Discharge <ValentinaTrina - Last Filed: 03/29/17 23:38> <Serina Robledo - Last Filed: 03/30/17 00:28> Time Seen by Provider: 03/29/17 21:15 Chief Complaint (Nursing): ENT Problem Past Medical History Reviewed: Historical Data, Nursing Documentation, Vital Signs - Medical History PMH: Asthma, Bipolar Disorder, HTN Denies: Chronic Kidney Disease Surgical History: Appendectomy Family History: States: Unknown Family Hx - Social History Hx Alcohol Use: No Hx Substance Use: No <ValentinaTrina - Last Filed: 03/29/17 23:38> Review Of Systems Except As Marked, All Systems Reviewed And Found Negative. ENT: Positive for: Ear Pain <ValentinaTrina - Last Filed: 03/29/17 23:38> Physical Exam - Physical Exam Appears: Non-toxic, No Acute Distress, Other (uncomfortable) Skin: Normal Color, Warm, No Rash Head: Atraumatic, Normacephalic, No Swelling Eye(s): bilateral: Normal Inspection Ear(s): Right: Other (mild external canal erythema, mastoid tenderness, no swelling, no erythema) Nose: Normal, No Discharge Throat: Normal, No Erythema Neck: Normal, Normal ROM, Supple Chest: No Tenderness Cardiovascular: Rhythm Regular Respiratory: Normal Breath Sounds, No Rales Gastrointestinal/Abdominal: Soft, No Tenderness Extremity: Normal ROM Neurological/Psych: Oriented x3, Normal Speech, Normal Cognition, Normal Motor, Normal Sensation <Trina Montgomery - Last Filed: 03/29/17 23:38> ED Course And Treatment O2 Sat by Pulse Oximetry: 98 Progress Note: Percocet po, Amoxicillin po, CT of mastoids. <Trina Montgomery - Last Filed: 03/29/17 23:38> - CT Scan/US CT temporal bones Other Rad Studies (CT/US): Read By Radiologist, Radiology Report Reviewed CT/US Interpretation: Soft tissue swelling, soft tissue emphysema or right mandibular soft tissue. Reassessment Condition: Improved <Serina Rolbedo - Last Filed: 03/30/17 00:28> Disposition - Disposition Disposition Time: 23:00 <Trina Montgomery - Last Filed: 03/29/17 23:38> Counseled Patient/Family Regarding: Studies Performed, Diagnosis, Need For Followup, Rx Given <Serina Robledo - Last Filed: 03/30/17 00:28> - Disposition Referrals: Prakash Scales MD [Staff Provider] - Condition: IMPROVED Additional Instructions: Follow up with you doctor and with an ENT specialist within 1 week for further evaluation and treatment. Return to the ER if you develop fever, drainage, worsening of symptoms or if you have any other concerns. Prescriptions: Amoxicillin/Clavulanate [Augmentin 875 MG-125 MG] 1 tab PO BID #14 tab Naproxen [Naprosyn] 1 tab PO BID PRN #20 tab PRN Reason: Pain Forms: Gen Discharge Inst Maltese, General Discharge Instructions - Clinical Impression Clinical Impression: Soft tissue emphysema, Otalgia of right ear - PA / CORE SHAPER / Resident Statement MD/DO has examined the patient and agrees with the treatment plan. <Serina Robledo - Last Filed: 03/30/17 00:28> Physician Patient Turnover Patient Signed Over To: Serina Robledo Handoff Comments: CT report, dispo <Trina Montgomery - Last Filed: 03/29/17 23:38>
[2017-03-30] MEDS ORDERED: Naproxen 550 mg Tab PO STA (00:28)
[2017-03-30] MEDS ORDERED: Naproxen 550 mg Tab PO ONE (00:34)
[2017-03-30 00:38] VITALS: BP 117/71; PULSE 66; TEMP 97.6
--- NOTE | 2017-03-30 10:20 | CT ---
PROCEDURE: CT OF THE TEMPORAL BONES WITHOUT CONTRAST HISTORY: right sided severe pain COMPARISON: None available. TECHNIQUE: High resolution axial images of the temporal bones were obtained. Coronal and sagittal reformats were generated. This CT exam was performed using one or more of the following dose reduction techniques: Automated exposure control, adjustment of the mA and/or kV according to patient size, and/or use of iterative reconstruction technique. Total exam DLP = 675 mGy-cm. FINDINGS: RIGHT TEMPORAL BONE: RIGHT MIDDLE EAR: Normal RIGHT INNER EAR: Cochlea: Normal Semicircular canals: Normal RIGHT MASTOID AIR CELLS: Normal RIGHT INTERNAL AUDITORY CANAL: Normal RIGHT EXTERNAL AUDITORY CANAL: Normal RIGHT VESTIBULAR AND COCHLEAR AQUEDUCT: Normal OTHER: There is a large amount of air within the right parotid gland as well as soft tissue surrounding the external auditory canal. There is no obvious abscess or inflammation of the parotid gland. The etiology of this finding is uncertain. Intra parotid air is an unusual finding. This can be seen in the setting of increased intraoral air pressure such as playing a musical instrument with reflux of air into Stensen's duct. Clinical correlation is suggested. LEFT TEMPORAL BONE: LEFT MIDDLE EAR: Normal LEFT INNER EAR: Cochlea: Normal Semicircular canals: Normal LEFT MASTOID AIR CELLS: Normal LEFT INTERNAL AUDITORY CANAL: Normal LEFT EXTERNAL AUDITORY CANAL: Normal LEFT VESTIBULAR AND COCHLEAR AQUEDUCTS: Normal OTHER FINDINGS: The report concurs with the preliminary [facility] report. IMPRESSION: There is a large amount of air within the right parotid gland as well as soft tissue surrounding the external auditory canal. There is no obvious abscess or inflammation of the parotid gland. The etiology of this finding is uncertain. Intra parotid air is an unusual finding. This can be seen in the setting of increased intraoral air pressure such as playing a musical instrument with reflux of air into Stensen's duct. Clinical correlation is suggested..
== END 2017-03-30 00:37 | disposition home or self-care (01) ==
LOC: C.ER 20:55
DX: H92.01 Otalgia, right ear (principal); J43.8 Other emphysema